=== PATIENT | female | born 1985 | race Caucasian/White ===

== ENCOUNTER 2022-03-10 07:23 | Day surgery (SDC) | payer OTHER, SELFPAY ==
[2022-03-10] VITALS (8 sets, daily range): BP systolic 113–142; BP diastolic 81–91; PULSE 76–100; RESP 16–18; TEMP 36.2–36.6; O2SAT 94–99; BMI 42.3
--- NOTE | 2022-03-10 | EMB_PTH ---
PATIENT: RAQUEL LEAL LOC: [facility] [place] U#:[id number] AGE/SX: 36/F ROOM: RE03/10/[address]: Dr. Reema Noe MD : [id number] BED: DIS: 03/10/2022 SPEC #: [id number] RECD: 03/10/22 12:22 STATUS: NAHOMI REShereen #: [id number] GENO: 03/10/22 00:[address]: Reeam Noe DEPT: SURGICAL PATHOLOGY RECD BY: Vandana Granados ENTERED: 03/10/22 12:51 SP TYPE: ENDOM BX/C EVON DR: No Primary Care Phys Tissues: Endometrium, NOS Procedures: Surgery Specimen Level IV HEADER OPERATION: Hysteroscopy, D & C Symphion, IUD insertion PRE-OP DIAGNOSIS: Abnormal uterine bleeding TISSUE SUBMITTED: Endometrial curettings MICROSCOPIC DIAGNOSIS Endometrial curettings: Proliferative endometrium with glandular and stromal breakdown. Fragments of benign endocervical mucosa. SJ:aiyana 03/14/2022 MICROSCOPIC DESCRIPTION Slides are reviewed. GROSS DESCRIPTION Received in fixative is one container labeled with the patient's name and designated endometrial curettings. The specimen consists of multiple fragments of quintanilla hemorrhagic soft tissue that in aggregate measure 3 x 2 x 0.2 cm. The specimen is totally submitted in one cassette. / JENI:aiyana 03/10/2022 TC:5 CPT: 93876
[2022-03-10 08:03] LABS: Internal QC Validated? YES +Cl - CLEAR BKGD; Pregnancy, Urine Negative Negative
[2022-03-10 08:20] LABS: Absolute Lymphocyte Count 1.85 X10^3/uL (0.83-4.51); Absolute Neutrophil Count 4.1 X10^3/uL (2.0-7.7); Hematocrit 37.6 % (37-47); Hemoglobin 12.4 g/dL (12.0-15.0); Lymphocyte # 1.85 X10^3/ul (0.83-4.51); Mean Corpuscular Volume 88.1 fL (81-99); Mean Platelet Vol. 10.2 fl (6.2-12.0); Monocyte# 0.42 X10^3/uL; Monocyte% 6.6 % (0-10); NRBC Flagged by Analyzer 0 % (0-5); Neutrophil # 4.08 X10^3/uL (2.7-7.7); Neutrophil % 63.9 % (47-70); Platelet Count 258 K/mm3 (150-450); RBC Distribution Width CV 13.8 % (11.6-14.6); RBC Distribution Width SD 44.2 fl (35.1-43.9); Red Blood Count 4.27 M/mm3 (4.2-5.4); White Blood Count 6.4 K/mm3 (4.4-11.0)
[2022-03-10] MEDS: Lactated Ringers 1,000 ML 15 ML IV (08:28)
[2022-03-10] MEDS: Acetaminophen 500 MG Tablet 1000 MG PO (08:28)
[2022-03-10] MEDS: Celecoxib 200 MG Capsule PO (08:29)
--- NOTE | 2022-03-10 09:00 | PCM.HP.BLA ---
History and Physical Date of Admission: 03/10/22 Pain physical reviewed. No clinically significant changes since H&P was completed.
--- NOTE | 2022-03-10 09:36 | DCINST_ITS ---
Discharge Instructions Diet Discharge Diet: No restrictions Activity May resume sexual activity in: 2 weeks Lifting Restrictions: none Dressing / Incision Call your doctor if your incision/area has: Sudden Increased Bleeding and Foul Smelling Discharge Call your doctor if you observe: Fever of 101 or Higher and Using more than 1 pad per hour (for 2 hrs in a row) Follow Up Care Please Follow Up With: Reema Noe MD When: 2-4 weeks or as needed. Call [phone] to make an appointment or with any concerns. Test Results: Test results from this visit will be discussed in further detail at your follow- up appointment, if applicable. Discharge Plan Admission Primary Reason for Your Visit: D&C with IUD insertion Attending Provider: Reema Noe Primary Care Provider: Care PhysicianMena Primary Discharge Orders/Prescriptions Prescriptions: New ibuprofen [ibuprofen] 600 MG tablet 600 mg PO Q6H PRN (Reason: Pain) 10 Days Qty: 30 1RF Continued venlafaxine [Effexor XR] 150 mg Capsule,Extended Release 24hr 300 mg PO DAILY Rexulti 1 mg Tablet 2 mg PO DAILY trazodone 50 mg Tablet 50 mg PO DAILY hydroxyzine pamoate [Vistaril] 50 mg Capsule 50 mg PO DAILY Referrals / Follow Up: Care Physician,Mena Primary [Primary Care Provider] - Disposition Disposition (needs filled in before D/C Order can be placed): Home, Self Care
[2022-03-10] MEDS: Lidocaine 1% /Epi 1:100 (20ml) 20 ML Vial (09:39)
[2022-03-10] MEDS: Levonorgestrel IUD (Liletta) 1 EACH INTRA-UTER (09:48)
--- NOTE | 2022-03-10 09:52 | PCM.OPRPT ---
Problems Associated Problem List Diagnoses (1) Menorrhagia: (2) Encounter for IUD insertion: Report of Operation Date of Procedure: 03/10/22 Pre-Operative Diagnosis: menorrhagia, endometrial polyps Post-Operative Diagnosis: menorrhagia Surgery/Procedure Performed:: hysteroscopy D&C with Liletta IUD insertion Description of Surgical Findings:: lush endometrium, normal cervix Surgeon: Reema Noe greenhouse grower: madonna black Type of Anesthesia: General Anesthesiologist: Shaan Vuong Special Medications: none Specimen's removed: endometrial curettings Drains: none Estimated Blood Loss (mL): 20 Fluids Replaced: 900 Description of Procedure: The patient was taken to the OR where she was prepped and draped in dorsal lithotomy position. The weighted speculum was placed in the vagina and the anterior lip of the cervix was grasped with a single-tooth tenaculum. A paracervical block was administered with 1% lidocaine solution. The cervix was dilated serially with Hegar dilators. The Symphion hysteroscope was placed into the uterine cavity and the above findings were noted. Bilateral tubal ostia were identified. The Symphion resector was inserted and a visual D&C completed. The Liletta IUD was then inserted in the usual sterile fashion and the strings cut to 2 cm. The instruments were removed from the vagina. The specimen was handed off and sent to pathology. All sponge and needle counts were correct. Vaginal sweep was performed by me. The patient was awakened and taken to the recovery room in stable condition. Calculated fluid deficit was 450 cc of normal saline but some was on the floor as well Findings: Endometrial cavity: Normal, no fibroids or polyps noted Cervix: Normal Vagina: Normal Grafts/Implants Used: Liletta IUD Procedure Start Time: 09:39 Procedure Stop Time: 09:49 Complications none Admit VTE Documentation VTE Present on Admission: No VTE Mechan Device Prophylaxis: SCD's VTE Pharm Prophylaxis ordered?: No Reason prophylaxis not ordered:: Procedure Not Indicated
== END 2022-03-10 11:01 | disposition home or self-care (01) ==
LOC: SDC 07:30 → AC 07:31
PROVIDERS: Referring Provider Obstetrics & Gynecology; Visit Provider Obstetrics & Gynecology
PROC: 0UB98ZZ Excision of Uterus, Via Natural or Artificial Opening Endoscopic (ICD-10-PCS; CPT 58558; principal; 2022-03-10 08:40)
DX: N92.0 Excessive and frequent menstruation with regular cycle (principal); Z79.899 Other long term (current) drug therapy; Z30.430 Encounter for insertion of intrauterine contraceptive device
CPT/HCPCS: 58558; 58300; 00952; 81025; 85025; 88305; J7120; J2405